=== PATIENT | male | born 1985 | race Caucasian/White ===

== ENCOUNTER 2024-03-07 12:39 | Emergency (ER) | payer MEDICARE, MEDICAID, SELFPAY ==
[2024-03-07 13:02] VITALS: BP 171/97; PULSE 103; RESP 24; TEMP 37.2; O2SAT 91; BMI 41.1
--- NOTE | 2024-03-07 13:02 | PC.NURSE ---
CALLED RT AT THIS TIME FOR BREATHING TREATMENT
[2024-03-07] MEDS: predniSONE 20 MG TABLET 60 MG PO (13:09)
[2024-03-07 13:16] VITALS: PULSE 93
[2024-03-07] MEDS: ALBUTEROL RT 2.5 MG/0.5 ML NEBU 10 MG INH (13:16)
[2024-03-07] MEDS: IPRATROPIUM RT 0.5 MG/ 2.5 ML NEBU 1 MG INH (13:16)
[2024-03-07] MEDS: SODIUM CHLORIDE RT SOL 0.9% 3 ML NEBU INH (13:17)
[2024-03-07 13:21] VITALS: PULSE 92; RESP 25; O2SAT 99
--- NOTE | 2024-03-07 14:46 | PD.EDSOB ---
ED SOB =RME/HPI General Chief Complaint: Shortness of Breath/Dyspnea Stated Complaint: SOB X 4 days Time Seen by Provider: 03/07/24 13:00 Arrival date/time: 03/07/24 12:39 RME / HPI RME / HPI Narrative: 38-year-old male with a history of asthma and seasonal exacerbations, who presents with approximately 1 week of worsening shortness of breath. He notes every year during this time is when his shortness gets worse. He denies chest pain. For the last week he has been using his rescue inhaler over 8 puffs a day and has run out this morning therefore comes to the emergency department. He also ran out of his Advair about a week ago. He has a another maintenance puff of which he is compliant with. He continues to smoke cigarettes. Related Data Previous Rx's ?Medication ?Instructions ?Recorded albuterol sulfate 90 mcg/actuation 2 puff inhalation Q4HR PRN dyspnea 12/17/16 aerosol inhaler (ProAir HFA) #1 inh prednisone 20 mg tablet 20 mg PO QAM #5 tabs 02/15/17 ibuprofen 800 mg tablet 800 mg PO TID PRN pain #30 tabs 10/06/20 albuterol sulfate 90 mcg/actuation 1 inh inhalation QID PRN shortness 03/07/24 aerosol inhaler of breath or wheezing #8.5 grams fluticasone 500 mcg-salmeterol 50 1 inh inhalation Q12H #60 ea 03/07/24 mcg/dose blistr powdr for inhalation (Advair Diskus) prednisone 50 mg tablet 50 mg PO QDAY 5 days #5 tabs 03/07/24 Allergies Allergy/AdvReac Type Severity Reaction Status Date / Time Penicillins Allergy Severe UNKNOWN Verified 10/06/20 11:44 Review of Systems Review of Systems Systems Reviewed: All systems reviewed, normal except as documented ED Exam Narrative Physical exam: GENERAL APPEARANCE: AxOx4, generally well-appearing, moderate respiratory distress, elevated BMI HEENT: NC, AT. MMM. EOMI, clear conjunctiva, oropharynx clear. NECK: Supple without lymphadenopathy. No stiffness or restricted ROM. HEART: Normal rate and regular rhythm, normal S1/S1, no m/r/g LUNGS: Diminished breath sounds in all lung lazaro, schuler expiratory wheezes and inspiratory wheezes wheezes are heard, no rales or rhonchi ABDOMEN: Soft, nontender, nondistended with good bowel sounds heard. EXTREMITIES: Without cyanosis, clubbing or edema. NEUROLOGICAL: Grossly nonfocal. Alert and oriented, moving all 4 extremities. CN not formally tested but appear grossly intact. Observed to ambulate with normal gait. Skin: Warm and dry without any rash. Course Course Course Narrative: Patient noted significant improvement in respiratory status after aggressive nebulized bronchodilator treatment and oral steroids. He states that he is back to his normal baseline, a good day breathing. On evaluation however his oxygen saturations are 90 to 92% on room air, however he is laying flat, breathing comfortably, and actively interacting with his smart phone. On auscultation he still has expiratory wheezes, and I suspect this is chronic for him. He feels his breathing is back to baseline and would prefer and feels comfortable for discharge. Quality Measures none Orders Category Date Time Status ALBUTEROL RT 0.5ml [Proventil Rt 0.5ml] Med 03/07/24 13:00 Discontinued 10 mg INH X1 ONE ALBUTEROL RT 3ml [Proventil Rt 3ml] Med 03/07/24 15:05 Discontinued 2.5 mg INH X1 ONE Ipratropium [employer] Rt Casie [Atrovent Rt Casie] Med 03/07/24 13:00 Discontinued 1 mg INH X1 ONE Sodium Chloride Rt Casie 0.9% [NS Rt Casie 0.9%] Med 03/07/24 13:00 Active 3 ml INH PRN PRN predniSONE Med 03/07/24 13:00 Discontinued 60 mg PO X1 ONE Vital Signs Vital signs: Vital Signs Temperature 98.9 F 03/07/24 13:02 Pulse Rate 103 H 03/07/24 13:02 Respiratory Rate 24 H 03/07/24 13:02 Blood Pressure 171/97 H 03/07/24 13:02 Pulse Oximetry (%) 91 L 03/07/24 13:02 Oxygen Delivery Method Room Air 03/07/24 13:02 SpO2 91% on room air, patient is borderline hypoxic Shortness of Breath / Dyspnea MDM Narrative MDM Narrative:: Mr. Kc has a history of asthma who is on maintenance Advair therapy with rescue inhalers. He unfortunately continues to smoke cigarettes and has been out of his Advair and has just run out of albuterol today. He endorses some seasonal exacerbations of his shortness of breath of which now during the winter is the most difficult time for him. He denies symptoms consistent with a respiratory infection nor does he have chest pain. He was treated aggressively for an asthma exacerbation with oral steroids and nebulized bronchodilators with subjective resolution of his shortness of breath. Objectively he is still has expiratory wheezes on exam and oxygen saturations on room air are 90 to 92%.He has elevated BMI, signs consistent with obstructive sleep apnea, and likely lives in the range of an oxygen saturation of 88 to 92%. At this point it would not be the goal to raise him to normal as this could trigger a respiratory depression. I have advised him on the importance of regular use of his Advair and to stop smoking cigarettes. We will have him continue steroids for the next 5 days with refills for his Advair and his albuterol to be sent to the pharmacy. As this is a chronic recurrent issue for him, he has improved appropriately with expected treatment, he does not have any signs of respiratory infection or chest pain, further workup such as laboratory testing and chest x-ray are not indicated today. Patient data External records reviewed:: [facility] previous records Clinical information provided by:: patient Social determinants that could affect healthcare access:: none Patient has the following chronic illnesses:: Asthma How is presenting disease/condition affected by chronic disease/condition?: exacerbated by Evaluation data The following diagnostics were reviewed and interpreted by me:: other (specify) (Workup not indicated) Lab and/or radiology exams considered but not ordered:: As per narrative Interpretation Summary: None Medications / Prescriptions Medications or Prescriptions considered but not ordered:: None Medication administrations:: Medication Administration History Sodium Chloride (Sodium Chloride Rt Casie 0.9% 3 Ml Nebu) 3 ml INH PRN PRN PRN Reason: SOLN Stop: 04/06/24 12:59 Last Admin: 03/07/24 13:17 Dose: 3 ml Documented By: SHAILESH Discontinued Medications Albuterol (Albuterol Rt 2.5 Mg/0.5 Ml Nebu) 10 mg INH X1 ONE Stop: 03/07/24 13:01 Last Admin: 03/07/24 13:16 Dose: 10 mg Documented By: SHAILESH Albuterol (Albuterol Rt 2.5 Mg/3 Ml Nebu) 2.5 mg INH X1 ONE Stop: 03/07/24 15:06 Last Admin: 03/07/24 15:12 Dose: 2.5 mg Documented By: SHAILESH Ipratropium [employer] (Ipratropium Rt 0.5 Mg/ 2.5 Ml Nebu) 1 mg INH X1 ONE Stop: 03/07/24 13:01 Last Admin: 03/07/24 13:16 Dose: 1 mg Documented By: SHAILESH Prednisone (Prednisone 20 Mg Tablet) 60 mg PO X1 ONE Stop: 03/07/24 13:01 Last Admin: 03/07/24 13:09 Dose: 60 mg Documented By: DO Above Consultations Consultation(s) initiated? (list below): No Diagnosis Shortness of Breath Differential Diagnosis: acute exacerbation of chronic obstructive airways disease and community acquired pneumonia Most likely diagnosis given after review of the tests above:: See below Admission Indicated Admission indicated?: not indicated Admission Request Was there a request for admission?: No Disposition Plan Disposition Plan: Discharge Discharge Attestation Discharge Attestation: The patient and all family members were given an opportunity to ask questions and understood the discharge instructions. Discharge instructions specifically effects, indications for sooner follow up or return to the emergency department, and the expected course of current diagnosis. Patient condition: Stable Critical Care Time Critical Care Time Critical Care Time: Yes Total Critical Care Time (min.): 35 Attestation: Excluding billable procedures for the rapid response, analysis, management, treatment, and documentation to vent the very possible risk of cardiopulmonary decompensation and or . Discharge Plan Plan Patient Disposition: HOME (Self Care) Prescriptions/Referrals Prescriptions/Med Rec: New albuterol sulfate 90 mcg/actuation HFA aerosol inhaler 1 inh inhalation QID PRN (Reason: shortness of breath or wheezing) Qty: 8.5 0RF prednisone 50 mg tablet 50 mg PO QDAY 5 Days Qty: 5 0RF fluticasone propion-salmeterol [Advair Diskus] 500-50 mcg/dose blister with device 1 inh inhalation Q12H Qty: 60 0RF No Action albuterol sulfate [ProAir HFA] 8.5 GM HFA aerosol inhaler 2 puff Inhalation Q4HR PRN (Reason: dyspnea) Qty: 1 0RF prednisone 20 MG tablet 20 mg PO QAM Qty: 5 0RF ibuprofen 800 mg tablet 800 mg PO TID PRN (Reason: pain) Qty: 30 0RF Referrals: Nicole Albrecht MD [Primary Care Provider] - In 1 week Problem List Clinical Impression: Acute asthma exacerbation, Continuous tobacco abuse Patient/Caregiver Discharge Instructions Education Materials: ED Asthma, Acute (Adult), Smoking and Respiratory Diseases Additional Instructions: Please consider stopping smoking for better lung health. Follow-up with your primary care doctor in 2 to 3 days for recheck. You can return to the emergency department sooner if symptoms worsen or if you notice any new, concerning issues. Print Language: [place] Citizen Stand Alone Forms: Natalia Award Info., Patient Portal Info Letter
--- NOTE | 2024-03-07 15:03 | PC.NURSE ---
PT ABLE TO SPEAK FULL SENTENCES WITHOUT DIFFICULTY. PT STATES THAT HE FEELS BETTER AT THIS TIME. 02 SATS 91% ON 3L
[2024-03-07 15:12] VITALS: PULSE 92
[2024-03-07] MEDS: ALBUTEROL RT 2.5 MG/3 ML NEBU INH (15:12)
[2024-03-07 15:14] VITALS: PULSE 88; RESP 21; O2SAT 98
[2024-03-07 17:09] VITALS: BP 132/99; PULSE 69; RESP 18; TEMP 37.1; O2SAT 90
== END 2024-03-07 17:09 | disposition home or self-care (01) ==
PROVIDERS: Emergency Provider Emergency Medicine; PCP Internal Medicine
DX: J45.901 Unspecified asthma with (acute) exacerbation (principal); F17.210 Nicotine dependence, cigarettes, uncomplicated
CPT/HCPCS: 94640; 94644; 99284; J7512

== ENCOUNTER → 2024-10-16 | Outpatient (CLI) | payer MEDICARE, MEDICAID, SELFPAY ==
--- NOTE | 2024-10-16 13:28 | XR_ITS ---
Examination: Foot, left, 3 views Technique: AP, oblique, lateral views foot, 3 views Date and time of exam: October 16, 2024 1330 hours INDICATIONS: Optic fell on the foot 6 days ago, foot pain FINDINGS: No acute fracture No dislocation No foreign body IMPRESSION: No acute fracture
== END | disposition home or self-care (01) ==
PROVIDERS: PCP Internal Medicine; Referring Provider Nurse Practitioner Primary Care; Visit Provider Nurse Practitioner Primary Care
DX: S99.922A Unspecified injury of left foot, initial encounter (principal); W19.XXXA Unspecified fall, initial encounter
CPT/HCPCS: 73630